=== PATIENT | male | born 1955 | race Caucasian/White ===

== ENCOUNTER 2020-11-11 09:40 | Emergency (ER) | payer MEDICAID, SELFPAY ==
[~2020-11-11] VITALS: Ht 167.6 cm; Wt 71.0 kg
--- NOTE | 2020-11-11 10:15 | NUR ---
PT IS A 64M WITH COMPLAINTS OF A CHRONIC WOUND ON THE RIGHT LOWER LEG. THE WOUND IS ABOUT THE SIZE OF A HALF DOLLAR. THERE IS REDNESS AND SWELLING TO THE LEG AND HE STATES HE HAS BEEN DEALING WITH THE WOUND FOR 2 YEARS. ED PROVIDER AT BEDSIDE FOR EVAL AND POC. SP02 AND BP MONITORS IN PLACE. CALL LIGHT WITHIN REACH.
[2020-11-11] MEDS ORDERED: SODIUM CHLORIDE FLUSH 10ML SYR IVF ONE (10:30)
[2020-11-11] MEDS ORDERED: HYDROcodone/APAP 5/325 TABLET PO ONE (10:30)
[2020-11-11] MEDS ORDERED: SODIUM CHLORIDE 0.9% 1,000ML IVBOLUS ONE (10:30)
[2020-11-11] MEDS ORDERED: OXYcodone/APAP 5/325MG TABLET ONE ×2 (10:33→12:27)
[2020-11-11 10:40] LABS: BASOPHILS % (AUTO) 1 % (0-1); EOSINOPHILS % (AUTO) 5 % (1-7); LYMPHOCYTES % (AUTO) 32 % (22-44); MEAN CORPUSCULAR HEMOGLOBIN 28.9 pg (27.5-34.5); MEAN PLATELET VOLUME 7.1 fL (7.4-10.4); MONOCYTES % (AUTO) 8 % (2-9); NEUTROPHILS % (AUTO) 54 % (42-75); PLATELET COUNT 290 x10^3/uL (130-400); RED BLOOD COUNT 4.51 x10^6/uL (4.38-5.82); RED CELL DISTRIBUTION WIDTH 13.6 % (9.4-14.8)
[2020-11-11 10:45] LABS: MD NO
[2020-11-11 10:50] LABS: ALBUMIN 3.4 g/dL (3.4-5.0); ANION GAP 6 mmol/L (5-15); C-REACTIVE PROTEIN, QUANT 0.23 mg/dL (0.02-0.49); CALCIUM 8.8 mg/dL (8.5-10.1); CHLORIDE 108 mmol/L (98-107); CREATININE 0.88 mg/dL (0.7-1.3)
[2020-11-11] MEDS ORDERED: OXYcodone/APAP 5/325MG TABLET PO ONE (11:00)
--- NOTE | 2020-11-11 11:09 | NUR ---
WOUND CLEANED AND DRESSED. PT RESTING COMFORTABLY WITH MONITORS IN PLACE AND CALL LIGHT WITHIN REACH.
[2020-11-11 11:43] LABS: HCT (SEDRATE) 38.3 % (39.2-51.8)
[2020-11-11 12:06] VITALS: BP 115/64
--- NOTE | 2020-11-11 12:06 | NUR ---
PENITENTIARY, CLINIC RESOURCES AND BUS PASS GIVEN. MILK AND CRACKERS GIVEN.
--- NOTE | 2020-11-11 12:46 | NUR ---
Patient/Caregiver given discharge instructions and they have confirmed that they understand the instructions. Patient d/c in wheelchair but he is ambulatory and steady on his feet.
== END 2020-11-11 12:47 | disposition home or self-care (01) ==
LOC: ED 10:14
DX: L03.115 Cellulitis of right lower limb (principal); G89.29 Other chronic pain
CPT/HCPCS: 36415; 73590; 80048; 82040; 83605; 85025; 85651; 86140; 87040; 96360; 99284; J7030

== ENCOUNTER 2020-11-24 04:04 | Emergency (ER) | payer MEDICAID ==
[~2020-11-24] VITALS: Ht 167.6 cm; Wt 71.3 kg
[2020-11-24 04:08] VITALS: BP 150/88
[2020-11-24] MEDS ORDERED: NEOSPORIN OINT. PKT 1 PACKET ONE (04:52)
--- NOTE | 2020-11-24 05:31 | NUR ---
pts wound bandaged. wound supplies and fresh socks given to pt. Pt given a snack and resouces for clinics and a bus pass for discharge
--- NOTE | 2020-11-24 05:38 | NUR ---
Pt became angry when asked to leave. Security called to assist ith discharge
== END 2020-11-24 05:44 | disposition home or self-care (01) ==
LOC: ED 05:15
DX: L03.115 Cellulitis of right lower limb (principal); M54.2 Cervicalgia; M79.89 Other specified soft tissue disorders; Z76.0 Encounter for issue of repeat prescription; Z87.891 Personal history of nicotine dependence
CPT/HCPCS: 99283